=== PATIENT | female | born 1965 | race Caucasian/White ===

== ENCOUNTER 2021-11-13 13:44 | Emergency (ER) | payer OTHER, BC | END 2021-11-13 14:32 | disposition home or self-care (01) | LOC: MW.ED 13:44 | DX: S00.03XA Contusion of scalp, initial encounter (principal); I10 Essential (primary) hypertension; Z79.899 Other long term (current) drug therapy; W00.0XXA Fall on same level due to ice and snow, initial encounter | CPT/HCPCS: 99282; 99283 ==

== ENCOUNTER 2024-08-19 16:17 | Emergency (ER) | payer BC, OTHER ==
[2024-08-19] MEDS: diphenhydrAMINE 50 MG/ML SDV IVPUSH ONE (16:49)
[2024-08-19] MEDS: Sodium Chloride 0.9% 1,000 ML IV ONE ×2 (16:49→18:24)
[2024-08-19] MEDS: Metoclopramide 10 MG/2 ML SDV IVPUSH ONE (16:50)
[2024-08-19 16:51] LABS: BASOPHILS ABSOLUTE AUTO 0.02 K/uL (0.00-0.20); BASOPHILS PERCENT AUTO 0.2 % (0.0-1.0); EOSINOPHILS ABSOLUTE AUTO 0.23 K/uL (0.00-0.45); EOSINOPHILS PERCENT AUTO 1.8 % (0.0-6.0); HEMATOCRIT 45.1 % (37.0-47.0); HEMOGLOBIN 15.5 g/dL (12.0-16.0); IMMATURE GRAN ABSOLUTE AUTO 0.05 K/uL (0.00-0.05); IMMATURE GRAN PERCENT AUTO 0.4 % (0.0-0.4); LYMPHOCYTES ABSOLUTE AUTO 2.88 K/uL (1.00-4.80); LYMPHOCYTES PERCENT AUTO 22.8 % (24.0-44.0); MEAN CORPUSCULAR HEMOGLOBIN 29.6 pg (28.0-32.0); MEAN CORPUSCULAR HGB CONC 34.4 g/dL (32.0-36.0); MEAN CORPUSCULAR VOLUME 86.2 fL (83.0-99.0); MEAN PLATELET VOLUME 10.3 fL (9.4-12.3); MONOCYTES ABSOLUTE AUTO 0.91 K/uL (0.00-0.80); MONOCYTES PERCENT AUTO 7.2 % (0.0-8.0); NEUTROPHILS ABSOLUTE AUTO 8.55 K/uL (1.80-7.70); NEUTROPHILS PERCENT AUTO 67.6 % (41.0-71.0); PLATELET COUNT,PLT 340 K/uL (150-400); RED BLOOD CELL COUNT 5.23 M/uL (4.10-5.30); WHITE BLOOD CELL COUNT,WBC 12.64 K/uL (3.9-11.3)
[2024-08-19 17:00] LABS: A/G RATIO 0.9 (0.9-1.6); ALBUMIN 3.7 g/dL (3.4-5.0); BILIRUBIN TOTAL 0.5 mg/dL (0.2-1.0); C-REACTIVE PROTEIN 4.51 mg/dL (<0.3); CALCIUM 9.2 mg/dL (8.5-10.1); CARBON DIOXIDE,CO2 26.2 mmol/L (21.0-32.0); EST CRCL DRUG DOSING (CG) 33.56 mL/min; POTASSIUM,K 3.4 mmol/L (3.5-5.1)
[2024-08-19 17:31] LABS: LACTIC ACID 2.6 mmol/L (0.4-2.0)
[2024-08-19] MEDS: cefTRIAXone 2 GM in Sodium Chloride 0.9% 50 ML IV ONE (18:51)
[2024-08-19] MEDS: metroNIDAZOLE/Normal Saline 500 MG in Premix Bag 1 BAG IV ONE (19:20)
== END 2024-08-19 20:18 | disposition home or self-care (01) ==
LOC: MW.ED 16:17
DX: K57.32 Diverticulitis of large intestine without perforation or abscess without bleeding (principal); I10 Essential (primary) hypertension; K21.9 Gastro-esophageal reflux disease without esophagitis; Z96.659 Presence of unspecified artificial knee joint; Z96.649 Presence of unspecified artificial hip joint; Z79.899 Other long term (current) drug therapy
CPT/HCPCS: 36415; 74150; 80053; 83605; 83690; 85025; 86140; 96361; 96365; 96367; 96375; 99284; J0696; J1200; J1836; J2765; J3490; J7030

== ENCOUNTER 2025-02-23 08:20 | Day surgery (SDC) | payer BC ==
[2025-02-23] MEDS: Lactated Ringers 1,000 ML IV SCH (07:49)
[2025-02-23] MEDS ORDERED: propofoL 500 MG/50 ML 50 ML ONE (09:23)
[2025-02-23] MEDS ORDERED: dexmedeTOMIDine HCl 200 MCG/2 ML SDV ONE (09:26)
[2025-02-23] MEDS ORDERED: Propofol 200 MG/20 ML SDV ONE (10:25)
[2025-02-23] MEDS ORDERED: Lactated Ringers 1,000 ML IV SCH (11:00)
== END 2025-02-23 11:20 | disposition home or self-care (01) ==
LOC: MW.SDS 08:20
PROVIDERS: ATTEND Surgery
DX: K63.3 Ulcer of intestine (principal); K29.50 Unspecified chronic gastritis without bleeding; K31.89 Other diseases of stomach and duodenum; K44.9 Diaphragmatic hernia without obstruction or gangrene; K21.9 Gastro-esophageal reflux disease without esophagitis
CPT/HCPCS: 43239; 45380; 45381; J2704; J7120; 00813